=== PATIENT | male | born 1965 | race Two or more races ===

== ENCOUNTER 2021-11-01 10:37 | Emergency (ER) | payer BC, OTHER ==
[~2021-11-01] VITALS: Ht 180.3 cm; Wt 90.7 kg
[2021-11-01] MEDS ORDERED: HYDROcodone-ACET 10/325MG TAB PO ONE (12:45)
[2021-11-01 13:19] VITALS: BP 144/75
== END 2021-11-01 16:07 | disposition home or self-care (01) ==
LOC: ER 10:37
DX: S82.832A Other fracture of upper and lower end of left fibula, initial encounter for closed fracture (principal); V80.010A Animal-rider injured by fall from or being thrown from horse in noncollision accident, initial encounter; Y93.89 Activity, other specified; Y92.89 Other specified places as the place of occurrence of the external cause; Y99.8 Other external cause status
CPT/HCPCS: 29515; 73610; 73630